=== PATIENT | female | born 1975 | race Caucasian/White ===

== ENCOUNTER 2016-09-18 21:25 | Emergency (ER) | payer OTHER ==
[~2016-09-18] VITALS: Ht 144.8 cm; Wt 109.7 kg
[~2016-09-18 21:25] MED LIST: ANAPROX DS550 M1 PO; FLEXERIL10 MG PO; LORCET 5-325 M1 EACH PO; MOTRIN800 MG PO; NAPROSYN500 MG PO; NOHOMEMEDS
[2016-09-18] MEDS ORDERED: ULTRAM50 MG PO (21:58)
[2016-09-18] MEDS ORDERED: FLEXERIL10 MG PO (21:58)
[2016-09-18 22:58] VITALS: BP 170/88
== END 2016-09-18 22:59 | disposition home or self-care (01) ==
LOC: EME 21:25
DX: S86.111A Strain of other muscle(s) and tendon(s) of posterior muscle group at lower leg level, right leg, initial encounter (principal); X58.XXXA Exposure to other specified factors, initial encounter; M54.5 Low back pain; M79.651 Pain in right thigh; Z90.49 Acquired absence of other specified parts of digestive tract; F17.200 Nicotine dependence, unspecified, uncomplicated
CPT/HCPCS: 99281; 99283; J1885

== ENCOUNTER 2016-10-16 13:22 | Emergency (ER) | payer OTHER ==
[~2016-10-16] VITALS: Ht 144.8 cm; Wt 106.8 kg
[~2016-10-16 13:22] MED LIST changes: +ULTRAM50 MG PO
[2016-10-16 14:02] LABS: HEMATOCRIT 41.4 % (36.0-46.0); MCH 30.2 PG (29.0-34.0); MCHC 33.3 G/DL (30.0-36.0); MCV 90.6 FL (83-99); MEAN PLAT.VOLUME 10.3 uM^3 (9.5-12.4); PLATELET COUNT 270 K/uL (156-360); RBC DIS.WIDTH-CV 13.1 % (11.8-14.6); RBC DIS.WIDTH-SD 42.6 % (39-53); RED BLOOD COUNT 4.57 M/uL (3.80-5.20); WHITE BLOOD COUNT 11.1 K/uL (4.1-10.2)
[2016-10-16 14:16] LABS: CHLORIDE 104 mEq/L (99-109); SODIUM 137 mEq/L (136-147)
[2016-10-16 14:18] LABS: GLUCOSE 140 mg/dL (70-99)
[2016-10-16 14:20] LABS: ANION GAP 9 MEQ/L (2-14); TOTAL BILIRUBIN 0.3 mg/dL (0.0-1.0)
[2016-10-16 14:22] LABS: ALKALINE PHOSPHATASE 83 IU/L (3-129); GFR ESTIMATE (CALCULATED) > 59 mL/min/
[2016-10-16 14:23] LABS: UREA NITROGEN (BUN) 13 mg/dL (9-23)
[2016-10-16 14:32] LABS: QUANTITATIVE HCG < 4.0 MIU/ML
[2016-10-16 14:47] LABS: ADD MIUA? YES; BILIRUBIN NEGATIVE; BLOOD NEGATIVE; COLOR YELLOW ((YELLOW)); GLUCOSE (STRIP) NEGATIVE; KETONES 5; LEUKOCYTES SMALL; NITRITE NEGATIVE; PROTEIN (STRIP) NEGATIVE; SPECIFIC GRAVITY 1.026 (1.000-1.030); UROBILINOGEN 0.2 MG/DL (0.2-1.0)
[2016-10-16 15:06] LABS: BACTERIA RARE /HPF; EPITHELIAL CELLS 2+ /HPF; MUCUS TRACE /LPF; RED BLOOD CELLS 0-5 /HPF (0-5); UCUL ADDED? NO; UNCLASSIFIED CRYSTALS 3+ /HPF; WHITE BLOOD CELLS 0-5 /HPF (0-5)
[2016-10-16] MEDS ORDERED: BENTYL10 MG PO (16:13)
[2016-10-16] MEDS ORDERED: ANECREAM30 GM TP (16:18)
[2016-10-16 16:25] VITALS: BP 141/7
== END 2016-10-16 16:29 | disposition home or self-care (01) ==
LOC: EME 13:22
DX: R19.7 Diarrhea, unspecified (principal); R10.9 Unspecified abdominal pain; F17.200 Nicotine dependence, unspecified, uncomplicated
CPT/HCPCS: 80053; 81003; 84702; 85027; 99281; 99284

== ENCOUNTER 2016-11-18 22:18 | Emergency (ER) | payer OTHER ==
[~2016-11-18] VITALS: Ht 144.8 cm; Wt 107.1 kg
[~2016-11-18 22:18] MED LIST changes: +ANECREAM30 GM TP; +BENTYL10 MG PO
[2016-11-18 23:07] LABS: HEMATOCRIT 42.1 % (36.0-46.0); MCH 30.1 PG (29.0-34.0); MCV 91.1 FL (83-99); MEAN PLAT.VOLUME 10.4 uM^3 (9.5-12.4); PLATELET COUNT 281 K/uL (156-360); RBC DIS.WIDTH-CV 13.2 % (11.8-14.6); RBC DIS.WIDTH-SD 43.5 % (39-53); RED BLOOD COUNT 4.62 M/uL (3.80-5.20); WHITE BLOOD COUNT 12.8 K/uL (4.1-10.2)
[2016-11-18 23:24] LABS: CHLORIDE 101 mEq/L (99-109); POTASSIUM 4.6 mEq/L (3.7-5.4); SODIUM 136 mEq/L (136-147)
[2016-11-18 23:26] LABS: GLUCOSE 141 mg/dL (70-99)
[2016-11-18 23:27] LABS: ANION GAP 11 MEQ/L (2-14)
[2016-11-18 23:30] LABS: GFR ESTIMATE (CALCULATED) > 59 mL/min/; UREA NITROGEN (BUN) 18 mg/dL (9-23)
[2016-11-18] MEDS ORDERED: PREDNISONE20 MG PO (23:44)
[2016-11-18] MEDS ORDERED: PROVENTIL HFA6.7 GM IH (23:44)
[2016-11-19 00:02] VITALS: BP 138/65
== END 2016-11-19 00:03 | disposition home or self-care (01) ==
LOC: EME 22:18
DX: J45.909 Unspecified asthma, uncomplicated (principal); E78.5 Hyperlipidemia, unspecified; K21.9 Gastro-esophageal reflux disease without esophagitis; F17.200 Nicotine dependence, unspecified, uncomplicated
CPT/HCPCS: 71020; 80048; 85027; 94640; 99281; 99285; J7512

== ENCOUNTER 2017-01-20 14:04 | Emergency (ER) | payer OTHER ==
[~2017-01-20] VITALS: Ht 144.8 cm; Wt 105.6 kg
[~2017-01-20 14:04] MED LIST changes: +PREDNISONE20 MG PO; +PROVENTIL HFA6.7 GM IH
[2017-01-20 15:03] LABS: HEMATOCRIT 42.1 % (36.0-46.0); MCH 30.7 PG (29.0-34.0); MCHC 33.7 G/DL (30.0-36.0); MCV 91.1 FL (83-99); MEAN PLAT.VOLUME 10.9 uM^3 (9.5-12.4); PLATELET COUNT 247 K/uL (156-360); RBC DIS.WIDTH-SD 43.7 % (39-53); RED BLOOD COUNT 4.62 M/uL (3.80-5.20); WHITE BLOOD COUNT 10.7 K/uL (4.1-10.2)
[2017-01-20 15:24] LABS: ADD MIUA? YES; BILIRUBIN NEGATIVE; BLOOD MODERATE; COLOR YELLOW ((YELLOW)); GLUCOSE (STRIP) NEGATIVE; KETONES NEGATIVE; LEUKOCYTES LARGE; NITRITE NEGATIVE; PROTEIN (STRIP) NEGATIVE; SPECIFIC GRAVITY 1.027 (1.000-1.030); UROBILINOGEN 0.2 MG/DL (0.2-1.0)
[2017-01-20 15:28] LABS: BACTERIA NONE SEEN /HPF; EPITHELIAL CELLS 2+ /HPF; MUCUS TRACE /LPF; UCUL ADDED? YES; WHITE BLOOD CELLS 20-30 /HPF (0-5)
[2017-01-20 15:29] LABS: CHLORIDE 104 mEq/L (99-109)
[2017-01-20 15:30] LABS: POTASSIUM 4.1 mEq/L (3.7-5.4); SODIUM 139 mEq/L (136-147)
[2017-01-20 15:31] LABS: GLUCOSE 106 mg/dL (70-99)
[2017-01-20 15:33] LABS: ANION GAP 11 MEQ/L (2-14)
[2017-01-20 15:35] LABS: GFR ESTIMATE (CALCULATED) > 59 mL/min/
[2017-01-20 15:36] LABS: UREA NITROGEN (BUN) 16 mg/dL (9-23)
[2017-01-20] MEDS ORDERED: PYRIDIUM100 MG PO (17:42)
[2017-01-20] MEDS ORDERED: KEFLEX500 MG PO (17:42)
[2017-01-20] MEDS ORDERED: DIFLUCAN150 MG PO (17:43)
[2017-01-20 18:42] VITALS: BP 153/92
== END 2017-01-20 18:30 | disposition home or self-care (01) ==
LOC: EME 14:04
DX: N30.01 Acute cystitis with hematuria (principal); E78.5 Hyperlipidemia, unspecified; F32.9 Major depressive disorder, single episode, unspecified; K21.9 Gastro-esophageal reflux disease without esophagitis; F17.200 Nicotine dependence, unspecified, uncomplicated
CPT/HCPCS: 74020; 80048; 81003; 85027; 87086; 99281; 99283

== ENCOUNTER 2017-02-07 15:21 | Emergency (ER) | payer OTHER ==
[~2017-02-07] VITALS: Ht 144.8 cm; Wt 106.1 kg
[~2017-02-07 15:21] MED LIST changes: +DIFLUCAN150 MG PO; +KEFLEX500 MG PO; +PYRIDIUM100 MG PO
[2017-02-07] MEDS ORDERED: FLONASE16 G1 BOTH NARES (17:49)
[2017-02-07] MEDS ORDERED: [UNRECOGNIZED DRUG - OTHER] LEFT EAR (17:49)
[2017-02-07 18:06] VITALS: BP 146/100
== END 2017-02-07 18:06 | disposition home or self-care (01) ==
LOC: EME 15:21
DX: H92.03 Otalgia, bilateral (principal); J30.9 Allergic rhinitis, unspecified; R03.0 Elevated blood-pressure reading, without diagnosis of hypertension; F17.200 Nicotine dependence, unspecified, uncomplicated; E78.5 Hyperlipidemia, unspecified; K21.9 Gastro-esophageal reflux disease without esophagitis
CPT/HCPCS: 99281; 99284

== ENCOUNTER 2017-03-01 17:50 | Emergency (ER) | payer OTHER ==
[~2017-03-01] VITALS: Ht 144.8 cm; Wt 107.5 kg
[~2017-03-01 17:50] MED LIST changes: +FLONASE16 G1 BOTH NARES; +[UNRECOGNIZED DRUG - OTHER] LEFT EAR
[2017-03-01 18:27] LABS: ADD MIUA? YES; BILIRUBIN NEGATIVE; BLOOD MODERATE; COLOR YELLOW ((YELLOW)); GLUCOSE (STRIP) NEGATIVE; KETONES NEGATIVE; LEUKOCYTES LARGE; NITRITE NEGATIVE; PROTEIN (STRIP) NEGATIVE; SPECIFIC GRAVITY 1.017 (1.000-1.030); UROBILINOGEN 0.2 MG/DL (0.2-1.0)
[2017-03-01 18:37] LABS: BACTERIA RARE /HPF; EPITHELIAL CELLS 1+ /HPF; MUCUS NONE SEEN /LPF; WHITE BLOOD CELLS 20-30 /HPF (0-5)
[2017-03-01] MEDS ORDERED: NAPROSYN500 MG PO (18:58)
[2017-03-01 19:10] VITALS: BP 140/87
== END 2017-03-01 19:11 | disposition home or self-care (01) ==
LOC: EME 17:50
PROVIDERS: Physician Assistant
DX: S63.501A Unspecified sprain of right wrist, initial encounter (principal); N39.0 Urinary tract infection, site not specified; F17.200 Nicotine dependence, unspecified, uncomplicated
CPT/HCPCS: 73110; 74176; 80053; 81003; 83690; 85027; 87086; 99281; 99285; J3010

== ENCOUNTER 2017-10-17 12:39 | Emergency (ER) | payer SELFPAY ==
[~2017-10-17] VITALS: Ht 144.8 cm; Wt 108.5 kg
[2017-10-17] MEDS ORDERED: MOTRIN600 MG PO (14:11)
[2017-10-17] MEDS ORDERED: FLEXERIL10 MG PO (14:11)
[2017-10-17 14:42] VITALS: BP 117/88
== END 2017-10-17 14:42 | disposition home or self-care (01) ==
LOC: EME 12:39
DX: S30.0XXA Contusion of lower back and pelvis, initial encounter (principal); W10.9XXA Fall (on) (from) unspecified stairs and steps, initial encounter; F17.200 Nicotine dependence, unspecified, uncomplicated; Z88.6 Allergy status to analgesic agent; Z88.5 Allergy status to narcotic agent
CPT/HCPCS: 99281; 99284; J1885

== ENCOUNTER 2017-11-18 19:15 | Emergency (ER) | payer OTHER ==
[~2017-11-18] VITALS: Ht 147.3 cm; Wt 109.7 kg
[~2017-11-18 19:15] MED LIST changes: +MOTRIN600 MG PO
[2017-11-18 19:59] LABS: HEMATOCRIT 39.9 % (36.0-46.0); HEMOGLOBIN 14.1 G/DL (11.9-15.5); MCH 31.9 PG (29.0-34.0); MCHC 35.3 G/DL (30.0-36.0); MCV 90.3 FL (83-99); PLATELET COUNT 217 K/uL (156-360); RBC DIS.WIDTH-CV 14.1 % (11.8-14.6); RBC DIS.WIDTH-SD 46.1 % (39-53); RED BLOOD COUNT 4.42 M/uL (3.80-5.20); WHITE BLOOD COUNT 9.4 K/uL (4.1-10.2)
[2017-11-18 20:09] LABS: CHLORIDE 100 mEq/L (99-109); POTASSIUM 3.8 mEq/L (3.7-5.4); SODIUM 136 mEq/L (136-147)
[2017-11-18 20:11] LABS: GLUCOSE 179 mg/dL (70-99)
[2017-11-18 20:15] LABS: CREATININE 0.7 mg/dL (0.6-1.3); GFR ESTIMATE (CALCULATED) > 59 mL/min/; UREA NITROGEN (BUN) 10 mg/dL (9-23)
[2017-11-18 20:23] LABS: TROP-I INTERPRETATION NEGATIVE; TROPONIN-I < 0.01 ng/mL (0.0-0.30)
[2017-11-18 20:27] LABS: ALBUMIN 3.6 g/dL (3.2-4.8)
[2017-11-18 20:30] LABS: TOTAL PROTEIN 7.3 g/dL (6.4-8.3)
[2017-11-18 20:32] LABS: TOTAL BILIRUBIN 0.5 mg/dL (0.0-1.0)
[2017-11-18 20:33] LABS: ALKALINE PHOSPHATASE 224 IU/L (3-129)
[2017-11-18 20:35] LABS: AST (GOT) 62 IU/L (2-34); DIRECT BILIRUBIN 0.2 mg/dL (0.0-0.3)
[2017-11-18 20:36] LABS: ALT (GPT) 101 IU/L (3-49); LIPASE 44 U/L (1.0-51.0)
[2017-11-18 20:42] LABS: QUANTITATIVE HCG < 4.0 MIU/ML
[2017-11-19] MEDS ORDERED: ULTRAM50 MG PO (01:15)
[2017-11-19] MEDS ORDERED: PROTONIX20 MG PO (01:15)
[2017-11-19 01:42] VITALS: BP 105/64
== END 2017-11-19 01:42 | disposition home or self-care (01) ==
LOC: EME 19:15
PROVIDERS: Emergency Medicine
DX: R10.10 Upper abdominal pain, unspecified (principal); K29.70 Gastritis, unspecified, without bleeding; R07.81 Pleurodynia; R06.02 Shortness of breath; Z90.49 Acquired absence of other specified parts of digestive tract; K76.0 Fatty (change of) liver, not elsewhere classified; R16.1 Splenomegaly, not elsewhere classified; D25.9 Leiomyoma of uterus, unspecified; Z82.49 Family history of ischemic heart disease and other diseases of the circulatory system; F17.200 Nicotine dependence, unspecified, uncomplicated
CPT/HCPCS: 71046; 71275; 74177; 80048; 80076; 83690; 84484; 84702; 85027; 85379; 93005; 99281; 99285; J3010; J7040